=== PATIENT | male | born 1960 | race Caucasian/White ===

== ENCOUNTER 2019-09-16 08:12 | Outpatient (CLI) | payer BC, SELFPAY ==
--- NOTE | 2019-09-16 08:21 | XRR_ITS ---
PROCEDURE INFORMATION: Exam: XR Abdomen, 1 View Exam date and time: 09/16/2019 8:39 AM Age: 58 years old Clinical indication: Condition or disease; Kidney or ureter condition; Calculus (stone) in kidney; Additional info: Stones TECHNIQUE: Imaging protocol: XR of the abdomen. Views: Frontal supine view of the abdomen. 1 View. COMPARISON: CR XR KUB [id number] 06/03/2018 9:49 AM FINDINGS: Gastrointestinal tract: There is increased retained stool throughout the colon, compatible with constipation. Bones/joints: Unremarkable. XR/XR KUB [id number] IMPRESSION: No radiopaque calculi visualized. Assessment limited by overlying stool and bowel gas.
== END 2019-09-16 08:13 | disposition home or self-care (01) ==
LOC: RAD 08:16
PROVIDERS: Family Provider Family Medicine; PCP Family Medicine; Visit Provider Urology
DX: N20.0 Calculus of kidney; C67.4 Malignant neoplasm of posterior wall of bladder
CPT/HCPCS: 74018; 81001

== ENCOUNTER 2020-09-15 07:18 | Outpatient (CLI) | payer BC, SELFPAY ==
--- NOTE | 2020-09-15 07:30 | XR_ITS ---
WS: [id number] KUB, AP view, 09/15/2020 Clinical Data: STONE Comparison: KUB, 09/16/2019. Findings: No abnormal intraabdominal masses or calcifications are seen. There is no dilatated small bowel or ev idence of obstruction. There is a phlebolith on the right side of the true pelvis. There is a moderate amount of fecal mater ial throughout the colon. XR/XR KUB [id number] Impression: Negative KUB.
== END 2020-09-15 07:19 | disposition home or self-care (01) ==
PROVIDERS: PCP Electrodiagnostic Medicine; Visit Provider Urology
DX: N20.0 Calculus of kidney (principal)
CPT/HCPCS: 74018; 81003; G0103

== ENCOUNTER 2020-12-02 20:00 | Outpatient (CLI) | payer BC, SELFPAY | END 2020-12-02 20:01 | disposition home or self-care (01) | LOC: SLEEP 12-03 08:30 | PROVIDERS: PCP Electrodiagnostic Medicine; Visit Provider Electrodiagnostic Medicine | DX: G47.30 Sleep apnea, unspecified (principal); R53.83 Other fatigue; G25.81 Restless legs syndrome | CPT/HCPCS: 95810 ==

== ENCOUNTER 2021-02-23 07:37 | Outpatient (CLI) | payer BC, SELFPAY ==
--- NOTE | 2021-02-23 07:48 | XR_ITS ---
WS: [id number] Exam: XR shoulder LT min 2V* [id number] Date/Time of Exam: 02/23/2021 7:48 AM Reason For Exam: LEFT SHOULDER PAIN No fracture or dislocation noted. Minimal DJD at the AC joint. Normal soft tissues. XR/XR shoulder LT min 2V* [id number] IMPRESSION: 1. No fracture or dislocation. Minimal AC joint DJD.
== END 2021-02-23 07:38 | disposition home or self-care (01) ==
LOC: RAD 07:40
PROVIDERS: PCP Electrodiagnostic Medicine; Visit Provider Electrodiagnostic Medicine
DX: M25.512 Pain in left shoulder (principal)
CPT/HCPCS: 73030

== ENCOUNTER 2021-11-23 07:59 | Outpatient (CLI) | payer BC, SELFPAY ==
[2021-11-23 08:35] VITALS: BMI 27.7
--- NOTE | 2021-11-23 08:37 | NMCV_ITS ---
NM demetria perf SPECT r/s* [id number] Davie Catherine Age: 61 Gender: M : 1960 Exam Date: 11/23/2021 08:37 Ordering Phys: Monroe Salazar DO Technologist: DAYNA Holden Exam Location: [facility] Indications: CHEST PAIN STRESS TEST Please see separate stress test report in [facility] for full findings IMAGE PROTOCOL Rest/Stress 1 Exercise Day Radiopharmaceutical Dose (mCi) Administration Site Administered by Rest: Tc-99m 11.0 IV DAYNA Holden Sestamibi Stress:Tc-99m 32.4 IV DAYNA Glaser Sestamibi Rest: 23-Nov-2021 60 Discovery 630 Stress: 23-Nov-2021 15 Discovery 630 Radiopharmaceutical was injected at 85 % maximum heart rate. Images obtained in supine and prone position. SPECT RESULTS Technical Quality: Excellent Raw Data Analysis: Normal Image Corrections: No attenuation or motion correction applied Summed Stress Score: 0 Summed Rest Score: 0 Summed Difference Score: 0 PERFUSION FINDINGS SPECT images demonstrate homogeneous tracer distribution throughout the myocardium. FUNCTIONAL RESULTS (calculated via Gated SPECT) Stress Image LV EF (%): 70 Stress EDV (mL):104 TID: 0.87 Stress ESV (mL):31 FUNCTIONAL FINDINGS: There is normal left ventricular systolic function. IMPRESSIONS 1. Normal myocardial perfusion imaging with no evidence of ischemia 2. LV systolic function is normal Balbir Leonardo MD (Electronically Signed) Final Date: 23 November 2021 11:55 S
--- NOTE | 2021-11-23 08:37 | ECG_ITS ---
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 Interpretive Statements NAME OF STUDY: EXERCISE SESTAMIBI STRESS TEST INDICATION: [Chest Pain, exertional, ] EXERCISE DATA: The patient was exercised by Jeanmarie protocol. Baseline heart rate was 56 beats per minute. Baseline blood pressure was 154/84 millimeters of mercury. Target heart rate was 134 beats per minute. Maximum heart rate achieved was 141, which was 105% of the target heart rate. Maximum blood pressure was 201/79 millimeters of mercury. Total exercise time was 9 minutes 46 seconds. Maximum METs achieved was 13.5.The reason for ending the test was completion of the protocol. The patient complained of chest pressure during the stress test, which then resolved at the end of the test. ELECTROCARDIOGRAM: BASELINE: Showed sinus rhythm, normal axis, no significant ST-T changes at the baseline noted. [] EXERCISE: At the peak exercise level, [] No significant ST-T changes suggestive of ischemia noted. [] RECOVERY: During the recovery period, heart rate dropped appropriately. No significant ST-T changes in the recovery suggestive of ischemia noted. [] CONCLUSION: 1. Exercise capacity excellent 2. Heart rate response was appropriate 3. Blood pressure response was appropriate 4. Patient had chest pressure during stress test 5. Electrocardiogram portion of the stress test was not suggestive of ischemia. 6. Nuclear scan will be documented separately. Electronically Signed On 12-11-2021 21:36:52 CDT by Balbir Leonardo M.D. [email or web address]
[2021-11-23 11:05] VITALS: BP 159/91; PULSE 75
== END 2021-11-23 08:00 | disposition home or self-care (01) ==
PROVIDERS: PCP Electrodiagnostic Medicine; Visit Provider Electrodiagnostic Medicine
DX: R07.89 Other chest pain (principal); R06.02 Shortness of breath
CPT/HCPCS: 78452; 93017; A9500

== ENCOUNTER 2022-03-16 07:33 | Outpatient (CLI) | payer BC, SELFPAY ==
[2022-03-16 09:15] LABS: Prostate Specific AG Urology 0.86 ng/mL (0-4)
== END 2022-03-16 07:34 | disposition home or self-care (01) ==
PROVIDERS: PCP Electrodiagnostic Medicine; Visit Provider Urology
DX: Z12.5 Encounter for screening for malignant neoplasm of prostate (principal)
CPT/HCPCS: 36415; 84153

== ENCOUNTER 2022-03-21 06:54 | Outpatient (CLI) | payer BC, SELFPAY ==
--- NOTE | 2022-03-21 07:08 | XR_ITS ---
WS: [id number] KUB, AP view, 03/21/2022 Clinical Data: Renal Calculi Comparison: KUB, 09/15/2020 Findings: No abnormal intraabdominal masses or calcifications are seen. There is no dilatated small bowel or ev idence of obstruction. There is a large amount of fecal material throughout the colon. XR/XR KUB [id number] Impression: Negative KUB.
== END 2022-03-21 06:55 | disposition home or self-care (01) ==
LOC: RAD 06:55
PROVIDERS: PCP Electrodiagnostic Medicine; Visit Provider Urology
DX: N20.0 Calculus of kidney (principal); C67.4 Malignant neoplasm of posterior wall of bladder
CPT/HCPCS: 74018; 81003

== ENCOUNTER 2023-11-08 07:20 | Outpatient (CLI) | payer BC, SELFPAY ==
--- NOTE | 2023-11-08 07:34 | XR_ITS ---
WS: [id number] ABDOMEN 1 VIEW(S) HISTORY: KIDNEY STONES COMPARISON: 03/21/2022 Increased air within the colon. Partially obscuring the LEFT kidney and ureter. No renal calcificatio ns are identified. No ureteral calcification. RIGHT pelvic phlebolith is reidentified. No bladder calcifications. No bone abnormality. XR/XR KUB [id number] IMPRESSION: No renal or ureteral or bladder calcifications identified. LEFT kidney and uret er are partially obscured by GI content.
== END 2023-11-08 07:21 | disposition home or self-care (01) ==
PROVIDERS: PCP Electrodiagnostic Medicine; Visit Provider Urology
DX: N20.0 Calculus of kidney (principal)
CPT/HCPCS: 74018